=== PATIENT | male | born 2000 | race Caucasian/White ===

== ENCOUNTER 2019-02-11 10:05 | Emergency (ER) | payer OTHER, SELFPAY ==
[2019-02-11 10:07] VITALS: BP 114/73; PULSE 73; RESP 12; TEMP 36.7; O2SAT 99; BMI 25.5
--- NOTE | 2019-02-11 10:36 | ED_ITS ---
HPI - Male Genitourinary General Chief complaint: Urogenital-Male Stated complaint: Peeing blood,side/back hurts Time Seen by Provider: 02/11/19 10:31 Source: patient Mode of arrival: ambulatory Limitations: no limitations History of Present Illness HPI Narrative: Patient is a 19-year-old healthy male presenting with hematuria. [place]. He said it happened 2 times yesterday he went home and drank a bunch of water he does not notice it now but he does notice some irritation. He denies any penile discharge. He states he is not currently sexually active. He denies any flank pain although he does have some bilateral lower all lumbar pain. No fevers. MD Complaint: dysuria (And hematuria) Onset (ago): day(s) (1) Duration: now resolved Related Data Previous Rx's Medication Instructions Recorded sulfamethoxazole-trimethoprim 1 tab PO BID #14 tab 02/11/19 [Bactrim DS] Allergies Allergy/AdvReac Type Severity Reaction Status Date / Time No Known Drug Allergies Allergy Verified 02/11/19 10:16 Review of Systems Review of Systems GENERAL: Denies chills, fatigue, malaise, fever, sweats, travel HEENT: Denies sinus pain, ear pain, sore throat, difficulty swallowing, neck pain RESPIRATORY: Denies dyspnea, cough, wheezing, hemoptysis, sputum. CARDIOVASCULAR: Denies chest pain, palpitations, orthopnea, edema GASTROINTESTINAL: Denies nausea, vomiting, abdominal pain, diarrhea, constipation, melena. : See HPI MUSCULOSKELETAL: Denies weakness, joint pain, or bony pain SKIN: No rash, no erythema, no pruritus NEUROLOGIC: Denies weakness, dizziness, headache, numbness, change in speech, confusion PSYCHIATRIC: No concerning psychosocial issues. 12 point review of systems is negative except for those stated above and HPI [facility] Medical History Healthy adult (Acute) Social History Smoking Status: Current some day smoker Social History Smoking Status: Current some day smoker Exam Initial Vital Signs Initial Vital Signs: Vital Signs Temperature 98.1 F 02/11/19 10:07 Pulse Rate 73 02/11/19 10:07 Respiratory Rate 12 08/14/19 10:07 Blood Pressure 114/73 02/11/19 10:07 Pulse Oximetry 99 02/11/19 10:07 GENERAL: [Well-appearing, well-nourished] and in [no acute] distress. HEENT: Head atraumatic,EOMI, pupils reactive, face symmetric, [moist] mucous membranes [EARS:] [Tympanic membranes visualized, no erythema or bulging, no hemotympanum] [PHARYNX:] [No erythema, no tonsillar exudate, no cervical lymphadenopathy] CARDIOVASCULAR: Regular rate and rhythm without murmurs, rubs or gallops. RESPIRATORY: Breath sounds equal bilaterally, no wheezes rales or rhonchi. ABDOMEN: Soft, nontender. Normoactive bowel sounds all 4 quadrants. No guarding or rebound. BACK: Mild bilateral lower lumbar pain no vertebral tenderness : No CVA tenderness EXTREMITIES: Normal range of motion, no clubbing or edema. Neurovascularly intact NEUROLOGICAL: Alert and oriented x4.Normal gait and speech. SKIN: Warm, dry, no laceration, no petechiae, no rashes or lesions. Course Orders Ordered: ED Orders 02/11/19 10:20 Urinalysis and Microscopic Stat Urine Culture Stat 02/11/19 11:22 Urine Chlamydia Gonorrhea PCR Stat Vital Signs - 8 hr 02/11/19 10:07 02/11/19 11:05 Temperature 98.1 F Pulse Rate 73 53 L Respiratory Rate 12 12 Blood Pressure 114/73 110/68 Pulse Oximetry 99 100 MDM - Male Genitourinary Lab Data Attestation: I reviewed the patient's lab results. Lab Results 02/11/19 02/11/19 Range/Units 10:20 11:22 Urine Color Yellow Urine Appearance Clear Urine pH 5.5 (4.5-8.0) Ur Specific [place] 1.025 (1.000-1.035) Urine Protein Negative (Negative) Urine Glucose (UA) Negative (Negative) g/dL Urine Ketones Negative (NEGATIVE) Urine Occult Blood Negative (Negative) Urine Nitrate Negative (Negative) Urine Bilirubin Negative (NEGATIVE) Urine Urobilinogen 0.2 (0.2) E.U./dL Ur Leukocyte Esterase 1+ H (NEGATIVE) Urine RBC None seen (0-5/HPF) Urine WBC 5-10/hpf H (0-5/HPF) Ur Squamous Epith Cells 0-1 /hpf (0-5/HPF) Urine Bacteria None seen (None) Ur Culture Indicated? Specimen cultured Ur Chlamydia DNA (PCR) Not detected N gonorrhoeae DNA (PCR) Not detected MDM Narrative Medical decision making narrative: patient left prior to his gonorrhea chlamydia results. I have tried calling him with the results however the phone number listed [phone] is not the correct phone number. His results are negative. Discharge Plan Departure Patient Disposition: Home Clinical Impression: Urinary tract infection Qualifiers: Urinary tract infection type: acute cystitis Hematuria presence: without hematuria Qualified Code(s): N30.00 - Acute cystitis without hematuria Discharge Date/Time: 02/11/19 11:05 Interventions: ED Discharge Assessment Last Done: 02/11/19 11:05 Instructions: DI for Urinary Tract Infection (UTI) Activity Restrictions/Additional Instructions: *You have been diagnosed with UTI *What to do: Increased fluid intake *Continue to take medications as directed Bactrim 1 tablet twice a day for 7 day *Follow up with your primary care provider in 2-3 days *Return to ER if you should have increased blood in urine, increased pain, gross penile discharge or any new, worsening or concerning symptoms Prescriptions: New sulfamethoxazole-trimethoprim [Bactrim DS] 800-160 mg tablet 1 tab PO BID Qty: 14 RF: 0 Referrals: [facility] [Outside] Stand Alone Forms: Work Release Note
[2019-02-11 11:05] VITALS: BP 110/68; PULSE 53; RESP 12; O2SAT 100
[2019-02-11 12:54] LABS: Urine N gonorrhoeae NOT DETECTED
[2019-02-11 13:03] LABS: Urine Chlamydia NOT DETECTED
== END 2019-02-11 11:05 | disposition home or self-care (01) ==
PROVIDERS: Emergency Provider Emergency Medicine
DX: N30.00 Acute cystitis without hematuria (principal)
CPT/HCPCS: 81001; 87077; 87086; 87491; 87591; 99283

== ENCOUNTER 2019-09-02 16:55 | Emergency (ER) | payer OTHER, SELFPAY ==
[2019-09-02 17:04] VITALS: BP 123/75; PULSE 69; RESP 14; TEMP 36.9; O2SAT 99
--- NOTE | 2019-09-02 17:46 | DI.RAD.S_ITS ---
PROCEDURE: XR THORACIC SPINE 3V INDICATIONS: Lower thorasic spinal pain, no injury TECHNIQUE: 3 views of the thoracic spine were acquired. COMPARISON: None. FINDINGS: Bones: No fractures or dislocations. No suspicious bony lesions. 12 pairs of ribs are noted, and appear intact where visualized. Soft tissues: No paravertebral stripe thickening. IMPRESSION: No visualized acute fracture or dislocation. However, if clinical concern and/or pain persist, short interval imaging followup in 7-10 days is recommended, as occult injury cannot be definitively excluded. Dictated by: Sanna Anthony M.D. on 09/02/2019 at 18:20 Approved by: Sanna Anthony M.D. on 09/02/2019 at 18:21
--- NOTE | 2019-09-02 17:51 | ED_ITS ---
HPI - Back Pain/Injury <RUPINDER Black - Last Filed: 09/02/19 20:55> General Chief Complaint: Back Pain/Injury Stated Complaint: back pain Time Seen by Provider: 09/02/19 16:56 Source: patient History of Present Illness HPI Narrative: 19yo healthy male presents emergency department complaining of lower thoracic back pain for the past month. He states the pain developed when he woke up, he reports he is often lifting heavy objects at work but denies any specific injury to his back. Patient denies any trauma to his back, or history of falls. Patient states the pain was getting better over the past few weeks but now has progressively gotten worse. 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 Denies any numbness, tingling, loss of bowel or bladder control, fevers, chills, nausea, vomiting, diarrhea, history of surgeries to the back, or any other concerns. Related Data Previous Rx's Medication Instructions Recorded cyclobenzaprine 10 mg PO BEDTIME #14 tab 09/02/19 Allergies Allergy/AdvReac Type Severity Reaction Status Date / Time No Known Drug Allergies Allergy Verified 02/11/19 10:16 Review of Systems <RUPINDER Black - Last Filed: 09/02/19 20:55> Review of Systems Narrative: REVIEW OF SYSTEMS: GENERAL: Denies fever or chills. HENT: No head trauma. EYES: No double vision or vision loss. CARDIOVASCULAR: No chest pain or syncope. RESPIRATORY: No shortness of breath or cough. GASTROINTESTINAL: No nausea, vomiting, diarrhea, or constipation. GENITOURINARY: No flank pain or dysuria. MUSCULOSKELETAL: Complains of midback pain, see HPI. INTEGUMENTARY: No rash, lesions, or pruritus. NEURO: No numbness, tingling. Patient History <RUPINDER Black - Last Filed: 09/02/19 20:55> Medical History Healthy adult (Acute) Social History Smoking Status: Current some day smoker Smoking Status: Current some day smoker alcohol intake frequency: 0-2 drinks per day Substance Use Type: does not use Exam <RUPINDER Black - Last Filed: 09/02/19 20:55> Initial Vital Signs Initial Vital Signs: Vital Signs Temperature 98.4 F 09/02/19 17:04 Pulse Rate 69 09/02/19 17:04 Respiratory Rate 14 09/02/19 17:04 Blood Pressure 123/75 09/02/19 17:04 Pulse Oximetry 99 09/02/19 17:04 PHYSICAL EXAMINATION: GENERAL: Well groomed, alert, and cooperative. Answers questions promptly and appropriately. Vital signs noted. HENT: Normocephalic, atraumatic. EYES: Symmetrical, sclera white, no periorbital swelling. CARDIOVASCULAR: S1 and S2 sounds normal. Regular rate and rhythm, no murmurs, clicks, or bruits. No pedal edema. RESPIRATORY: Normal respiratory rate, trachea midline, airway patent. No stridor, nasal flaring or accessory muscle use. Lungs are clear in all [place]. MUSCULOSKELETAL: Tenderness to lower thoracic spine, increased tenderness to left paraspinal vertebral muscles, no spinal deformities. Decreased flexion due to pain. Normal gait and coordination. Equal tone and mass bilaterally. Equal strength to upper and lower extremities including deltoids, forearms, quadriceps, and cast. No ecchymosis or erythema noted to spine or back. EXTREMITIES: CMS intact. No pedal edema. SKIN: Warm, dry, soft, appropriate color for ethnicity. No lesions, rashes, or wounds. NEURO: Alert and Oriented X 3. No sensory deficits. PSYCH: Appropriate affect and mood. <Joey William DO - Last Filed: 09/03/19 07:06> Initial Vital Signs Initial Vital Signs: Vital Signs Temperature 98.4 F 09/02/19 17:04 Pulse Rate 69 09/02/19 17:04 Respiratory Rate 14 09/02/19 17:04 Blood Pressure 123/75 09/02/19 17:04 Pulse Oximetry 99 09/02/19 17:04 Course <RUPINDER Black - Last Filed: 09/02/19 20:55> Course Course Narrative: Patient was given Toradol which has improved pain. Orders Ordered: Discontinued Medications Ketorolac Tromethamine (Toradol) 30 mg IM NOW ONE Stop: 09/02/19 17:47 Last Admin: 09/02/19 18:07 Dose: 30 mg Documented by: AKINNEY Consultations Consultation #1: Patient staffed with Dr. William Vital Signs Vital signs: Vital Signs - 8 hr 09/02/19 17:04 Temperature 98.4 F Pulse Rate 69 Respiratory Rate 14 Blood Pressure 123/75 Pulse Oximetry 99 <Joey William DO - Last Filed: 09/03/19 07:06> Orders Ordered: Discontinued Medications Ketorolac Tromethamine (Toradol) 30 mg IM NOW ONE Stop: 09/02/19 17:47 Last Admin: 09/02/19 18:07 Dose: 30 mg Documented by: CHRISTINA Vital Signs Vital signs: Vital Signs - 8 hr 09/02/19 17:04 Temperature 98.4 F Pulse Rate 69 Respiratory Rate 14 Blood Pressure 123/75 Pulse Oximetry 99 MDM - Back Pain/Injury <RUPINDER Black - Last Filed: 09/02/19 20:55> Medical Records Attestation: I reviewed the patient's medical records. Lab Data Attestation: I reviewed the patient's lab results. Imaging Data Back XRAY: Radiologist's Impression: [address] [address] XRay Report Signed Patient: Ciera Siddiqui DMR#: [id number] : 2000Acct:[id number] Age/Sex: MDate of Service: 09/02/19 Loc: ED Accession Number: [id number] Procedure: XR thoracic spine 3V Ordering Provider: La Trivedi PROCEDURE: XR THORACIC SPINE 3V INDICATIONS: Lower thorasic spinal pain, no injury TECHNIQUE: 3 views of the thoracic spine were acquired. COMPARISON: None. FINDINGS: Bones: No fractures or dislocations. No suspicious bony lesions. 12 pairs of ribs are noted, and appear intact where visualized. Soft tissues: No paravertebral stripe thickening. IMPRESSION: No visualized acute fracture or dislocation. However, if clinical concern and/or pain persist, short interval imaging followup in 7-10 days is recommended, as occult injury cannot be definitively excluded. Dictated by: Sanna Anthony M.D. on 09/02/2019 at 18:20 Approved by: Sanna Anthony M.D. on 09/02/2019 at 18:21 MDM Narrative Medical decision making narrative: This is a 19-year-old healthy male complaining of musculoskeletal back pain, he has a history of lifting heavy objects but denies any specific incident that causes back pain. X-ray was taken due to prolonged duration of back pain over a month. X-ray shows no fractures or abnormalities. There was some thoracic spinal tenderness noted however patient did have increased left sided paraspinal vertebral muscle tenderness. Differential includes most likely muscle strain and or muscle spasms. Less likely degenerative disc disease, osteoarthritis, or fracture due to negative x- ray and lack of significant chronic ongoing pain. Less likely cauda equina as patient has no neurological deficits or symptoms such as numbness or tingling, or loss of bowel or bladder control. Patient's pain also improved with Toradol which was reassuring. Patient was encouraged to follow up with his primary care provider in the next few weeks to discuss physical therapy and proper lifting techniques. Patient was given a muscle relaxer to help with pain and sleep at this time. Return precautions given. Patient agrees with plan of care and verbalized understanding Discharge Plan Departure Patient Disposition: Home Clinical Impression: Thoracic back pain Qualifiers: Chronicity: acute Back pain laterality: left Qualified Code(s): M54.6 - Pain in thoracic spine Discharge Date/Time: 09/02/19 18:51 Instructions: DI for Low Back Pain Activity Restrictions/Additional Instructions: Thank you for entrusting me with your care today. As discussed, x-rays are negative for any fractures. Please take ibuprofen, 600 mg every 8 hours for the next 3-4 days to help with inflammation. I have also prescribed you a muscle relaxer, this will make you drowsy so do not drive with this. It is best to use this muscle relaxer at night. Follow-up with your primary care provider in the next few days for further evaluation and discussion of possible physical therapy. Return to the emergency department for any new or worsening symptoms such as loss of bowel or bladder control, numbness or tingling in your legs or arms, limb weakness, severe headaches, or any other concerns. Prescriptions: New cyclobenzaprine 10 mg tablet 10 mg PO BEDTIME Qty: 14 RF: 0 Stand Alone Forms: Work Release Note <Joey William, DO - Last Filed: 09/03/19 07:06> Sign Out Provider Sign Out Attestation: Dr William Co-Sign Statement: I was available for consultation during this patient's emergency department visit. This chart is signed by myself for administrative purposes only. I did not have direct contact with this patient during this visit. They were seen independently by the APC.
[2019-09-02] MEDS: KETOROLAC 60 MG/2 ML VIAL 30 MG IM (18:07)
== END 2019-09-02 18:51 | disposition home or self-care (01) ==
PROVIDERS: Emergency Provider Nurse Practitioner
DX: M54.6 Pain in thoracic spine (principal)
CPT/HCPCS: 72072; 96372; 99283; J1885